=== PATIENT | female | born 1945 | race Caucasian/White ===

== ENCOUNTER 2019-08-28 13:13 | Outpatient (CLI) | payer MEDICARE, SELFPAY ==
--- NOTE | 2019-08-28 | US_ITS ---
WS: [id number] RENAL ULTRASOUND HISTORY: RT FLANK PAIN COMPARISON: None available. TECHNIQUE: 2-D and color Doppler imaging of the kidney submitted. Right kidney: 11.1 cm x 5.4 cm x 5.3 cm. Normal size kidney with mild increased echogenicity. No hydronephrosis or solid mass. Left kidney: 10.7 cm x 5.2 cm x 4.1 cm. Mild increased echogenicity throughout the kidney. Small amount of increased fluid in the central pel vis. Parapelvic cyst were noted on a prior CT. No solid mass. Aorta: Normal. Urinary Bladder: Normal distention. US/US renal BI* [id number] IMPRESSION: 1. Mild chronic medical renal disease. 2. Increased fluid in the LEFT renal pelvis. May be a very minimally dilated r enal pelvis. Suspect this also could be related to parapelvic cysts that were s een on a prior CT dated 07/10/2016.
== END 2019-08-28 13:14 | disposition home or self-care (01) ==
LOC: RADOUTREAD 08-29 07:35
PROVIDERS: Family Provider Family Medicine; PCP Family Medicine; Visit Provider Family Medicine
DX: Z76.89 Persons encountering health services in other specified circumstances (principal)

== ENCOUNTER 2019-09-19 10:37 | Outpatient (CLI) | payer MEDICARE, SELFPAY ==
--- NOTE | 2019-09-19 10:49 | MM_ITS ---
WS: [id number] BILATERAL DIGITAL DIAGNOSTIC MAMMOGRAM MAMMOGRAPHY WITH CAD CLINICAL INFORMATION: BREAST PAIN COMPARISON: 3 ,014 TECHNIQUE: Bilateral CC, MLO, and ML views. FINDINGS: The breasts are composed of heterogeneous fibroglandular density, which can limit the detection of sm all underlying mass lesions. Lucent centered calcifications. Bilateral breast implants. No suspicious focal mass, asymmetry, calcifications, or architectural distortion. No evidence of mihaela gnancy. MM/[place] [id number] IMPRESSION: BI-RADS: 2-Benign FOLLOW UP: 1 Year Follow-up Recommend return to annual diagnostic mammography.
== END 2019-09-19 10:38 | disposition home or self-care (01) ==
LOC: RADSHAW 10:44
PROVIDERS: Family Provider Family Medicine; PCP Family Medicine; Visit Provider Family Medicine
DX: N64.4 Mastodynia (principal)
CPT/HCPCS: 77066

== ENCOUNTER 2022-03-06 08:52 | Outpatient (CLI) | payer MEDICARE, SELFPAY ==
--- NOTE | 2022-03-06 08:58 | MM_ITS ---
WS: [id number] BILATERAL SCREENING DIGITAL BREAST MAMMOGRAPHY WITH RODRIGUEZ DISPLACEMENT VIEWS. CAD PERFORMED. HISTORY: SCREENING COMPARISON: 09/19/2019 and 10/17/2013 Bilateral craniocaudal and mediolateral oblique views are performed with tomosynthesis and SM. Rodriguez displacement views in CC and MLO projection also performed. Breasts composition: There are scattered areas of fibroglandular density. Implants are prepectoral. Partial collapse of the implants is stable. Additional benign bilateral calcifications. No suspicious mass or distortion. MM/[place] [id number] IMPRESSION: BI-RADS: 2-Benign FOLLOW-UP: 1 Year Follow-up
== END 2022-03-06 08:53 | disposition home or self-care (01) ==
LOC: RAD 08:52
PROVIDERS: PCP Family Medicine; Visit Provider Family Medicine
DX: Z12.31 Encounter for screening mammogram for malignant neoplasm of breast (principal)
CPT/HCPCS: 77063; 77067

== ENCOUNTER 2023-05-10 09:53 | Outpatient (CLI) | payer MEDICARE, SELFPAY ==
--- NOTE | 2023-05-10 10:18 | MM_ITS ---
WS: [id number] BILATERAL 3D TOMOSYNTHESIS DIGITAL SCREENING MAMMOGRAPHY WITH CAD CLINICAL INFORMATION: SCREENING HISTORY: Screening mammogram. No current complaints. COMPARISON: 2021 TECHNIQUE: Bilateral CC and MLO views. FINDINGS: Bilateral breast implants with partial collapse stable compared to previous Scattered fibroglandular densities bilaterally. No suspicious focal mass, asymmetry, calcifications, or architectural distortion. No evidence of malignancy. Incidental punctate and lucent centered calci fications. IMPRESSION: MM/[place] [id number] BI-RADS: 2-Benign FOLLOW UP: 1 Year Follow-up Recommend return to annual screening mammography.
== END 2023-05-10 09:54 | disposition home or self-care (01) ==
PROVIDERS: PCP Family Medicine; Visit Provider Family Medicine
DX: Z12.31 Encounter for screening mammogram for malignant neoplasm of breast (principal)
CPT/HCPCS: 77063; 77067

== ENCOUNTER → 2023-08-04 13:40 | Outpatient (BNVA) | payer MEDICARE, SELFPAY | PROVIDERS: PCP Family Medicine; Visit Provider Podiatrist Foot & Ankle Surgery | DX: L84 Corns and callosities; M21.621 Bunionette of right foot | CPT/HCPCS: 73630; 99203 ==

== ENCOUNTER → 2023-09-01 10:59 | Outpatient (BNVA) | payer MEDICARE, SELFPAY | PROVIDERS: PCP Family Medicine; Visit Provider Podiatrist Foot & Ankle Surgery | DX: L84 Corns and callosities (principal); M21.621 Bunionette of right foot | CPT/HCPCS: 99213 ==

== ENCOUNTER 2024-05-25 13:22 | Outpatient (CLI) | payer MEDICARE, SELFPAY ==
--- NOTE | 2024-05-25 13:25 | MM_ITS ---
WS: [id number] BILATERAL SCREENING DIGITAL BREAST MAMMOGRAPHY WITH RODRIGUEZ DISPLACEMENT VIEWS. CAD PERFORMED. HISTORY: SCREENING COMPARISON: 05/10/2023 Bilateral craniocaudal and mediolateral oblique views are performed with tomosynthesis and SM. Rodriguez displacement views in CC and MLO projection also performed. Breasts composition: There are scattered areas of fibroglandular density. Implants are partially collapsed. Similar to the prior study. Asymmetries and calcifications within e ach breast are stable. MM/MM scr BI tomosynthesis [id number] IMPRESSION: BI-RADS: 2 - Benign. FOLLOW-UP: 1 Year Follow-up
== END 2024-05-25 13:23 | disposition home or self-care (01) ==
LOC: RAD 13:23
PROVIDERS: PCP Family Medicine; Visit Provider Family Medicine
DX: Z12.31 Encounter for screening mammogram for malignant neoplasm of breast (principal); R92.323 Mammographic fibroglandular density, bilateral breasts; T85.49XD Other mechanical complication of breast prosthesis and implant, subsequent encounter; R92.1 Mammographic calcification found on diagnostic imaging of breast; X58.XXXA Exposure to other specified factors, initial encounter
CPT/HCPCS: 77063; 77067

== ENCOUNTER → 2025-06-14 10:54 | Outpatient (BNVA) | payer MEDICARE, SELFPAY | PROVIDERS: PCP Family Medicine; Visit Provider Podiatrist Foot & Ankle Surgery | DX: L84 Corns and callosities (principal); M21.621 Bunionette of right foot; Q82.8 Other specified congenital malformations of skin | CPT/HCPCS: 99213 ==